=== PATIENT | male | born 1950 | race Hispanic/Latino ===

== ENCOUNTER 2021-07-29 07:44 | Day surgery (SDC) | payer MEDICARE ==
[2021-07-29] MEDS ORDERED: SODIUM CHLORIDE 0.9% 500 ML 500 ML IV SCH (09:00)
[2021-07-29 09:19] LABS: Basophils # (Auto) 0.1 K/mm3 (0.0-0.1); Basophils % (Auto) 2.2 % (0.0-1.8); Eosinophils # (Auto) 0.3 K/mm3 (0.0-0.4); Eosinophils % (Auto) 4.7 % (0.0-4.3); Hematocrit 30.5 % (35.5-45.6); Hemoglobin 9.7 gm/dl (11.8-15.2); Lymphocytes # (Auto) 0.8 K/mm3 (1.2-5.4); Lymphocytes % (Auto) 12.5 % (13.4-35.0); Mean Corpuscular HGB Conc 32 % (32-34); Mean Corpuscular Volume 92 fl (84-94); Monocytes # (Auto) 0.3 K/mm3 (0.0-0.8); Monocytes % (Auto) 4.7 % (0.0-7.3); Platelet Count 214 K/mm3 (140-440); Red Blood Count 3.31 M/mm3 (3.65-5.03); Red Cell Distribution Width 16.5 % (13.2-15.2)
[2021-07-29] MEDS ORDERED: MIDAZOLAM 2 MG/2 ML INJ ONE (09:24)
[2021-07-29] MEDS ORDERED: HEPARIN 10,000 UNITS/10 ML VIAL ONE (09:24)
[2021-07-29] MEDS ORDERED: HEPARIN/NS 5000 UNIT/500ML 1,000 ML IR ONE (09:24)
[2021-07-29] MEDS ORDERED: NITROGLYCERIN SYRINGE 3 ML ONE (09:25)
[2021-07-29] MEDS ORDERED: VERAPAMIL 5 MG/2 ML INJ ONE (09:25)
[2021-07-29] MEDS ORDERED: fentaNYL 100 MCG/2 ML INJ ONE (09:25)
[2021-07-29 09:27] LABS: INR 0.97 (0.87-1.13)
[2021-07-29 09:29] LABS: Calcium 9.3 mg/dL (8.4-10.2)
[2021-07-29] MEDS ORDERED: ASPIRIN 81 MG TAB CHEW PO SCH (10:00)
[2021-07-29] MEDS: LIDOCAINE (2%) 20 MG/1 ML VIAL 20 ML MDV INFILTRATI ONE ×2 (10:05→10:11)
[2021-07-29] MEDS ORDERED: HYDROcodone/ACETAMINOPHEN 5-325 MG TAB PO PRN (11:00)
[2021-07-29] MEDS ORDERED: SODIUM CHLORIDE 0.45% 1000 ML 1,000 ML IV SCH (11:00)
[2021-07-29] MEDS ORDERED: traMADol 50 MG TAB PO PRN (11:00)
--- NOTE | 2021-07-29 11:07 | Cardiac Catherization Report ---
DATE OF PROCEDURE: 07/29/2021 ORDERING PHYSICIAN: Dr. Janes Maddox. INDICATION: 1. Stable angina. 2. Abnormal myocardial perfusion scan. 3. History of coronary artery disease. PROCEDURES PERFORMED: 1. Selective left coronary angiography. 2. Selective right coronary angiography. 3. Left ventriculography was not performed due to underlying renal insufficiency. DESCRIPTION OF PROCEDURE: 1. After obtaining written consent, the patient was draped using sterile technique. 2. 2% lidocaine was injected into the right wrist. The right radial artery could not be cannulated with either a 6-Bermudian vascular sheath or a 5-Bermudian vascular sheath. Therefore, our attention was shifted to the right groin. A 2% lidocaine was injected into the right groin. Using a micropuncture needle, a 5-B[place]ian vascular sheath was inserted into the right femoral artery. A 5-[place] JL4 catheter was used to selectively engage the left coronary artery. A 5-[place] JR4 catheter was used to selectively engage the right coronary artery. A 5-[place] JR4 catheter was used to measure left ventricular end-diastolic pressure. A left ventriculogram was not performed due to underlying renal failure. Hemostasis was achieved at the end of the procedure using manual pressure. 3. Sedation administered was 1 mg of IV Versed and 50 mcg of IV fentanyl. 4. Total sedation time is 31 minutes. Physician/patient face to start time 9:55 a.m. Physician/patient face to stop time 10:26 a.m. No complications occurred during the procedure. Estimated blood loss was minimal. SPECIMENS REMOVED: None. HEMODYNAMICS: The aortic pressure is 152/79. LV systolic pressure is 152 mmHg. LV end-diastolic pressure is 38 mmHg. CARDIAC STRUCTURES: The left ventriculogram was not performed due to underlying renal failure. CORONARY ANATOMY: 1. The left main has mild diffuse disease. 2. The left anterior descending artery has a proximal tubular 50% stenosis that which is heavily calcified. There is a mid focal 90% stenosis that is heavily calcified. There is [id number] tubular 80% stenosis that is heavily calcified. The distal LAD has scattered and diffuse 90% stenoses. The distal LAD is a small caliber vessel. The first and second diagonal artery are small in caliber with a diffuse calcified disease. 3. The left circumflex has evidence of an ostial calcified lesion. The mid and distal left circumflex artery has [id number] diffuse disease. 4. The right coronary artery is 100% occluded at the proximal edge of a previously placed stent. Faint collaterals are noted from the left coronary circulation, filling the distal right coronary artery retrogradely. IMPRESSION: 1. Severe 3-vessel calcified disease. 90% focal mid LAD stenosis followed by 80% tubular [id number] LAD stenosis followed by scattered 90% disease in the distal LAD. 2. 80% calcified focal ostial circumflex stenosis. 3. 100% proximal right coronary artery occlusion at the proximal edge of a previously placed stent. Faint collaterals are noted from the left coronary circulation filling the distal right coronary artery retrogradely. 4. Elevated left ventricular end-diastolic pressure measured at 38 mmHg. RECOMMENDATIONS: Heart team approach with review with both Interventional Cardiology as well as cardiothoracic surgery. DISPOSITION: ARU. CONDITION: Stable. TID: [id number] RECEIPT: [id number] ANDRES/LUCIAN
[2021-07-29 15:02] VITALS: BP 148/72
== END 2021-07-29 16:20 | disposition home or self-care (01) ==
LOC: CATHLABREC 07:44
PROVIDERS: ATTEND Internal Medicine
DX: I10 Essential (primary) hypertension (principal); I25.10 Atherosclerotic heart disease of native coronary artery without angina pectoris; E78.00 Pure hypercholesterolemia, unspecified; M19.90 Unspecified osteoarthritis, unspecified site; Z87.891 Personal history of nicotine dependence; Z79.82 Long term (current) use of aspirin; Z79.84 Long term (current) use of oral hypoglycemic drugs; Z79.899 Other long term (current) drug therapy; Z98.890 Other specified postprocedural states; Z88.8 Allergy status to other drugs, medicaments and biological substances
CPT/HCPCS: 36415; 80048; 82962; 85025; 85610; 93005; 93458; 99156; 99157; C1894; J1644; J1815; J2250; J3010; J3490; J7040; Q9967